=== PATIENT | male | born 1965 | race African-American/Black ===

== ENCOUNTER 2017-09-22 07:59 | Emergency (ER) | payer BC, SELFPAY ==
[2017-09-22 08:44] LABS: Urine Blood NEGATIVE (NEG); Urine Glucose NEGATIVE (NEG); Urine Protein NEGATIVE (NEG); Urine Specific Gravity 1.015 (1.005-1.030)
[2017-09-22] MEDS ORDERED: CIPROFLOXACIN HCL 500 MG TAB ONE (08:44)
[2017-09-22] MEDS ORDERED: NA CHLORIDE 0.9% 1,000 ML ONE (08:44)
[2017-09-22] MEDS ORDERED: ONDANSETRON 4 MG/2 ML VIAL ONE (08:44)
[2017-09-22] MEDS ORDERED: metroNIDAZOLE 500 MG TABLET ONE (08:44)
[2017-09-22 08:45] LABS: Absolute Lymphocytes (CBC) 1.3 K/uL (0.7-4.9); Absolute Monocytes 0.6 K/uL (0.1-1.3); Absolute Neutrophil 5.1 K/uL (1.8-8.0); Basophils % 0.4 % (0-1.3); Eosinophils % 1.3 % (0-4.4); Hematocrit 41.5 % (39.6-49.0); Lymphocytes % 17.6 % (15.3-44.8); MCH 32.5 pg (27.0-35.0); MCV 93.4 fL (80-100); MPV 8.1 fL (7.6-11.3); Monocytes % 8.4 % (3.3-12.3); RBC Red Blood Cell Count 4.45 M/uL (4.33-5.43)
[2017-09-22 09:03] LABS: Albumin 4.5 g/dL (3.4-5.0); Bilirubin Direct 0.2 mg/dL (0-0.2); Bilirubin Total 0.5 mg/dL (0.2-1.0); Potassium 4.1 mmol/L (3.5-5.1); Protein, Total 8.2 g/dL (6.4-8.2)
--- NOTE | 2017-09-22 10:13 | ER ---
Nurse's Notes [facility] Name: Letha Rocha Age: 52 yrs Sex: Male : 1965 Arrival Date: 09/22/2017 Time: 08:03 Bed 5 Private MD: out of town, doctor Diagnosis: Gastroenteritis;Nausea and vomiting;Diarrhea, unspecified;Renal insufficiency Presentation: 09/22 08:10 Presenting complaint: Patient states: N/V/D and abd cramping that began 3 days ago. Pt ss reports he thought he was feeling better yesterday, but during the night time got worse again. Transition of care: patient was not received from another setting of care. Onset of symptoms was September 19, 2017. Risk Assessment: Do you want to hurt yourself or someone else? Patient reports no desire to harm self or others. Initial Sepsis Screen: Does the patient meet any 2 criteria? No. Patient's initial sepsis screen is negative. Does the patient have a suspected source of infection? No. Patient's initial sepsis screen is negative. Note Pt believes he may have "food poisoning". Care prior to arrival: None. 08:10 Acuity: NURY 3 ss 08:10 Method Of Arrival: Ambulatory ss Historical: - Allergies: 08:12 No Known Allergies; ss - PMHx: 08:12 Hypertension; Diabetes - IDDM; ss - PSHx: 08:12 cervical fusion; ss - Immunization history:: Adult Immunizations up to date. - Social history:: Smoking status: Patient uses tobacco products, chewing tobacco. - Ebola Screening: : Patient denies exposure to infectious person Patient denies travel to an Ebola-affected area in the 21 days before illness onset. Screenin:51 Abuse screen: Denies threats or abuse. Nutritional screening: No deficits noted. ae1 Tuberculosis screening: No symptoms or risk factors identified. Fall Risk None identified. Assessment: 08:13 General: Appears in no apparent distress. comfortable, Behavior is calm, cooperative. ae1 Pain: Complains of pain in abdomen. Neuro: Level of Consciousness is awake, alert, obeys commands, Oriented to person, place, time, situation. Cardiovascular: Heart tones S1 S2 present Patient's skin is warm and dry. Rhythm is regular. Respiratory: Airway is patent Respiratory effort is even, unlabored, Respiratory pattern is regular, symmetrical, Breath sounds are clear bilaterally. GI: Abdomen is round firm and no tender. Bowel sounds present X 4 quads. hyperactive in right lower quadrant and left lower quadrant. GI: Reports lower abdominal pain, diarrhea, intolerance of fluids, intolerance of food, nausea, vomiting. : No signs and/or symptoms were reported regarding the genitourinary system. Denies burning with urination. EENT: No signs and/or symptoms were reported regarding the EENT system. Derm: Skin is normal, Skin temperature is warm. Musculoskeletal: No signs and/or symptoms reported regarding the musculoskeletal system. 08:51 Reassessment: Patient appears in no apparent distress at this time. Patient states ae1 feeling better. Vital Signs: 08:12 BP 159 / 91; Pulse 90; Resp 17; Temp 97.8(O); Pulse Ox 99% on R/A; Weight 104.33 kg; ss Height 6 ft. 1 in. (185.42 cm); Pain 4/10; 09:52 BP 124 / 76; Pulse 72; Resp 18; Pulse Ox 100% on R/A; ae1 08:12 Body Mass Index 30.34 (104.33 kg, 185.42 cm) ED Course: 08:03 Patient arrived in ED. mr 08:03 out of town, doctor is Private Physician. mr 08:04 Dhiraj Grayson MD is Attending Physician. kdr 08:04 Farhan Bailey, MOMO is Primary Nurse. ae1 08:10 Inserted saline lock: 20 gauge in right antecubital area, using aseptic technique. ae1 Blood collected. 08:12 Triage completed. ss 08:12 Arm band placed on right wrist. ss 08:15 Bed in low position. Call light in reach. Side rails up X 1. Pulse ox on. NIBP on. ae1 08:24 Urine collected: clean catch specimen, clear, brady colored. jb1 09:55 Warm blanket given. Pillow given. ae1 10:27 No provider procedures requiring assistance completed. IV discontinued, intact, ae1 bleeding controlled, No redness/swelling at site. Pressure dressing applied. Administered Medications: 08:40 Drug: Zofran 4 mg Route: IVP; Site: right antecubital; ae1 09:55 Follow up: Response: Nausea is decreased ae1 08:40 Drug: Cipro 500 mg Route: PO; ae1 09:56 Follow up: Response: No adverse reaction ae1 08:41 Drug: Flagyl 500 mg Route: PO; ae1 09:55 Follow up: Response: No adverse reaction ae1 08:42 Drug: NS 0.9% 1000 ml Route: IV; Rate: 1 bolus; Site: right antecubital; ae1 09:55 Follow up: IV Status: Completed infusion ae1 Outcome: 10:12 Discharge ordered by . ivan 10:27 Discharged to home ambulatory. ae1 10:27 Condition: stable 10:27 Discharge instructions given to patient, Instructed on discharge instructions, follow up and referral plans. medication usage, Demonstrated understanding of instructions, Prescriptions given X 4. 10:28 Patient left the ED. ae1 Signatures: [employer] jb1 Dhiraj Grayson MD MD kdr Lavonne Concepcion Shelby, RN RN Farhan Bailey RN RN ae1
--- NOTE | 2017-09-22 10:13 | EDPHYS ---
Physician Documentation [facility] Name: Letha Rocha Age: 52 yrs Sex: Male : 1965 Arrival Date: 09/22/2017 Time: 08:03 Bed 5 Private MD: out of town, doctor ED Physician Dhiraj Grayson HPI: 09/22 10:16 This 52 yrs old Black Male presents to ER via Ambulatory with complaints of kdr Nausea/Vomiting/Diarrhea. 10:16 The patient presents to the emergency department with nausea, that is mild, vomiting, kdr that is intermittent, described as undigested food, diarrhea, that is intermittent, abdominal pain, of the abdomen diffusely, described as achy, crampy, intermittent, and does not radiate. Onset: The symptoms/episode began/occurred gradually, Tuesday - may have eaten some bad food earlier in the day on Tuesday. Possible causes: bad food exposure, possibly bad restaurant food. The symptoms are aggravated by nothing. The symptoms are alleviated by nothing. Associated signs and symptoms: Pertinent positives: abdominal pain, diarrhea, nausea, vomiting, Pertinent negatives: anorexia, belching, constipation, dysuria, fever, hematuria. Severity of symptoms: At their worst the symptoms were mild in the emergency department the symptoms have improved mildly. The patient has not experienced similar symptoms in the past. The patient has not recently seen a physician. Historical: - Allergies: 08:12 No Known Allergies; ss - PMHx: 08:12 Hypertension; Diabetes - IDDM; ss - PSHx: 08:12 cervical fusion; ss - Immunization history:: Adult Immunizations up to date. - Social history:: Smoking status: Patient uses tobacco products, chewing tobacco. - Ebola Screening: : Patient denies exposure to infectious person Patient denies travel to an Ebola-affected area in the 21 days before illness onset. ROS: 10:16 Constitutional: Negative for fever, chills, and weight loss, Eyes: Negative for injury, kdr pain, redness, and discharge, ENT: Negative for injury, pain, and discharge, Neck: Negative for injury, pain, and swelling, Cardiovascular: Negative for chest pain, palpitations, and edema, Respiratory: Negative for shortness of breath, cough, wheezing, and pleuritic chest pain, Back: Negative for injury and pain, : Negative for injury, bleeding, discharge, and swelling, MS/Extremity: Negative for injury and deformity, Skin: Negative for injury, rash, and discoloration, Neuro: Negative for headache, weakness, numbness, tingling, and seizure activity. Psych: Negative for depression, anxiety, suicide ideation, homicidal ideation, and hallucinations, Allergy/Immunology: Negative for hives, rash, and allergies, Endocrine: Negative for neck swelling, polydipsia, polyuria, polyphagia, and marked weight changes, Hematologic/Lymphatic: Negative for swollen nodes, abnormal bleeding, and unusual bruising. 10:16 Abdomen/GI: Positive for abdominal pain, nausea, vomiting, and diarrhea, abdominal cramps, Negative for abdominal distension, anorexia, dysphagia, hematemesis, black/tarry stool, rectal pain, rectal bleeding, bowel incontinence. Exam: 10:16 Constitutional: This is a well developed, well nourished patient who is awake, alert, kdr and in no acute distress. Head/Face: Normocephalic, atraumatic. Eyes: Pupils equal round and reactive to light, extra-ocular motions intact. Lids and lashes normal. Conjunctiva and sclera are non-icteric and not injected. Cornea within normal limits. Periorbital areas with no swelling, redness, or edema. Neck: Trachea midline, no thyromegaly or masses palpated, and no cervical lymphadenopathy. Supple, full range of motion without nuchal rigidity, or vertebral point tenderness. No Meningismus. Chest/axilla: Normal chest wall appearance and motion. Nontender with no deformity. No lesions are appreciated. Cardiovascular: Regular rate and rhythm with a normal S1 and S2. No gallops, murmurs, or rubs. Normal PMI, no JVD. No pulse deficits. Respiratory: Lungs have equal breath sounds bilaterally, clear to auscultation and percussion. No rales, rhonchi or wheezes noted. No increased work of breathing, no retractions or nasal flaring. Abdomen/GI: Soft, non-tender, with normal bowel sounds. No distension or tympany. No guarding or rebound. No evidence of tenderness throughout. Back: No spinal tenderness. No costovertebral tenderness. Full range of motion. Skin: Warm, dry with normal turgor. Normal color with no rashes, no lesions, and no evidence of cellulitis. MS/ Extremity: Pulses equal, no cyanosis. Neurovascular intact. Full, normal range of motion. Neuro: Awake and alert, GCS 15, oriented to person, place, time, and situation. Cranial nerves II-XII grossly intact. Motor strength 5/5 in all extremities. Sensory grossly intact. Cerebellar exam normal. Normal gait. Psych: Awake, alert, with orientation to person, place and time. Behavior, mood, and affect are within normal limits. Vital Signs: 08:12 BP 159 / 91; Pulse 90; Resp 17; Temp 97.8(O); Pulse Ox 99% on R/A; Weight 104.33 kg; ss Height 6 ft. 1 in. (185.42 cm); Pain 4/10; 09:52 BP 124 / 76; Pulse 72; Resp 18; Pulse Ox 100% on R/A; ae1 08:12 Body Mass Index 30.34 (104.33 kg, 185.42 cm) ss MDM: 10:12 Patient medically screened. kdr 10:16 Data reviewed: vital signs, nurses notes, lab test result(s). Special discussion: Based kdr on the patient's Hx, exam, and Dx evaluation, there is no indication for emergent surgery or inpatient Tx. It is understood by the patient/guardian that if the Sx's persist or worsen they need to return immediately for re-evaluation. I discussed with the patient/guardian in detail that at this point there is no indication for admission to the hospital. It is understood, however, that if the symptoms persist or worsen the patient needs to return immediately for re-evaluation. ED course: The patient was much improved at the time of care and was happy with the care provided and the plan for discharge and follow-up. 09/22 08:24 Order name: Amylase, Serum; Complete Time: 10:09/22 08:24 Order name: Basic Metabolic Panel; Complete Time: 10:09/22 08:24 Order name: CBC with Diff; Complete Time: 10:09/22 08:24 Order name: Creatinine for Radiology; Complete Time: 10:09/22 08:24 Order name: Hepatic Function; Complete Time: 10:09/22 08:24 Order name: Lipase; Complete Time: 10:09/22 08:24 Order name: IV Saline Lock; Complete Time: 08:39 ae1 09/22 08:24 Order name: Labs collected and sent; Complete Time: 08:39 ae1 09/22 08:28 Order name: Urine Dipstick--Ancillary (enter results); Complete Time: 10:09 eb 09/22 08:24 Order name: Urine Dipstick-Ancillary (obtain specimen); Complete Time: 08:24 ae1 Administered Medications: 08:40 Drug: Zofran 4 mg Route: IVP; Site: right antecubital; ae1 09:55 Follow up: Response: Nausea is decreased ae1 08:40 Drug: Cipro 500 mg Route: PO; ae1 09:56 Follow up: Response: No adverse reaction ae1 08:41 Drug: Flagyl 500 mg Route: PO; ae1 09:55 Follow up: Response: No adverse reaction ae1 08:42 Drug: NS 0.9% 1000 ml Route: IV; Rate: 1 bolus; Site: right antecubital; ae1 09:55 Follow up: IV Status: Completed infusion ae1 Disposition: 09/22/17 10:12 Discharged to Home. Impression: Gastroenteritis, Nausea and vomiting, Diarrhea, unspecified, Renal insufficiency. - Condition is Stable. - Discharge Instructions: Food Choices to Help Relieve Diarrhea, Adult, Nausea and Vomiting, Adult, [id number], Diarrhea, Adult, [id number]. - Prescriptions for Cipro 500 mg Oral Tablet - take 1 tablet by ORAL route every 12 hours for 10 days; 20 tablet. Flagyl 500 mg Oral Tablet - take 1 tablet by ORAL route every 6 hours for 10 days; 40 tablet. Zofran 4 mg Oral Tablet - take 1 tablet by ORAL route every 12 hours As needed; 6 tablet. Lomotil 2.5- 0.025 mg Oral Tablet - take 2 tablet by ORAL route once daily As needed; 20 tablet. - Medication Reconciliation Form, Thank You Letter, Antibiotic Education, Work release form form. - Follow up: Private Physician; When: 2 - 3 days; Reason: If symptoms return, Further diagnostic work-up, Recheck today's complaints, Continuance of care, Re-evaluation by your physician. - Problem is new. - Symptoms have improved. Signatures: [employer] EDNM Dhiraj Grayson MD MD kdr Smirch, Shelby, RN RN Farhan Mcginnis, RN RN ae1 Corrections: (The following items were deleted from the chart) 10:13 10:12 09/22/2017 10:12 Discharged to Home. Impression: Gastroenteritis; Nausea and kdr vomiting; Diarrhea, unspecified. Condition is Stable. Forms are Medication Reconciliation Form, Thank You Letter, Antibiotic Education, Prescription Opioid Use. Follow up: Private Physician; When: 2 - 3 days; Reason: If symptoms return, Further diagnostic work-up, Recheck today's complaints, Continuance of care, Re-evaluation by your physician. Problem is new. Symptoms have improved. kdr 10:28 10:13 09/22/2017 10:12 Discharged to Home. Impression: Gastroenteritis; Nausea and ae1 vomiting; Diarrhea, unspecified; Renal insufficiency. Condition is Stable. Forms are Medication Reconciliation Form, Thank You Letter, Antibiotic Education, Prescription Opioid Use. Follow up: Private Physician; When: 2 - 3 days; Reason: If symptoms return, Further diagnostic work-up, Recheck today's complaints, Continuance of care, Re-evaluation by your physician. Problem is new. Symptoms have improved. kdr
== END 2017-09-22 10:28 | disposition home or self-care (01) ==
LOC: ER 07:59
DX: K52.9 Noninfective gastroenteritis and colitis, unspecified (principal); I10 Essential (primary) hypertension; E11.9 Type 2 diabetes mellitus without complications; Z79.4 Long term (current) use of insulin
CPT/HCPCS: 36415; 80048; 80076; 81003; 82150; 83690; 85025; 96361; 96374; 99284; J2405; J7030